=== PATIENT | female | born 1980 | race Caucasian/White ===

== ENCOUNTER 2016-08-29 16:43 | Emergency (ER) | payer OTHER ==
[~2016-08-29] VITALS: Ht 165.1 cm; Wt 93.9 kg
[~2016-08-29 16:43] MED LIST: AMOXICILLIN500 MG PO; LAC PO
[2016-08-29 18:38] LABS: CALCIUM 8.9 mg/dL (8.5-10.1); CARBON DIOXIDE 28.4 mmol/L (21-32); CHLORIDE SERUM 104 mmol/L (98-107); CREATININE SERUM 0.9 mg/dL (0.6-1.0); GFR1 > 60 mL/min; GLUCOSE SERUM 90 mg/dL (74-106); POTASSIUM SERUM 4.2 mmol/L (3.5-5.1); SODIUM SERUM 139 mmol/L (136-145)
[2016-08-29 18:39] LABS: BASOPHIL % 0.6 % (0-2); PLATELET COUNT 343 x10^3mcL (130-400); RED CELL DISTRIBUTION WIDTH 13.5 % (11.5-14.5)
[2016-08-29 18:45] LABS: ALBUMIN 3.5 g/dL (3.4-5.0); ALKALINE PHOSPHATASE 86 U/L (46-116); ALT/SGPT 22 U/L (14-59); AMYLASE 42 U/L (25-115); AST/SGOT 4 U/L (15-37); BILIRUBIN TOTAL 0.2 mg/dL (0.20-1.00); LIPASE 179 IU/L (73-393); TOTAL PROTEIN, SERUM 7.5 g/dL (6.4-8.2)
[2016-08-29 19:16] VITALS: BP 148/74
== END 2016-08-29 19:16 | disposition home or self-care (01) ==
LOC: ED 16:43
PROVIDERS: Emergency Medicine
DX: R10.12 Left upper quadrant pain (principal); G43.909 Migraine, unspecified, not intractable, without status migrainosus
CPT/HCPCS: 83880; J1885

== ENCOUNTER 2017-03-09 10:43 | Emergency (ER) | payer SELFPAY ==
[~2017-03-09] VITALS: Ht 165.1 cm; Wt 95.2 kg
[2017-03-09 10:47] VITALS: BP 137/96
== END 2017-03-09 12:54 | disposition home or self-care (01) ==
LOC: ED 10:43
DX: G43.909 Migraine, unspecified, not intractable, without status migrainosus (principal)
CPT/HCPCS: J1885; J2930

== ENCOUNTER 2017-03-23 08:35 | Emergency (ER) | payer OTHER ==
[2017-03-23 10:48] VITALS: BP 110/66
== END 2017-03-23 10:48 | disposition home or self-care (01) ==
LOC: ED 08:35
DX: G43.909 Migraine, unspecified, not intractable, without status migrainosus (principal); Z98.51 Tubal ligation status; Z90.89 Acquired absence of other organs
CPT/HCPCS: J1885; J2765

== ENCOUNTER 2018-03-06 09:23 | Emergency (ER) | payer OTHER ==
[~2018-03-06] VITALS: Ht 165.1 cm; Wt 102.1 kg
[2018-03-06 09:32] VITALS: Ht 165.1 cm; Wt 102.1 kg
[2018-03-06 11:39] LABS: BASOPHIL % 0.6 % (0-2); PLATELET COUNT 364 x10^3mcL (130-400); RED CELL DISTRIBUTION WIDTH 13.8 % (11.5-14.5)
[2018-03-06 11:57] LABS: ALBUMIN 3.5 g/dL (3.4-5.0); ALKALINE PHOSPHATASE 87 U/L (46-116); ALT/SGPT 32 U/L (14-59); AST/SGOT 6 U/L (15-37); BILIRUBIN TOTAL 0.31 mg/dL (0.20-1.00); CARBON DIOXIDE 29.4 mmol/L (21-32); CHLORIDE SERUM 108 mmol/L (98-107); CREATININE SERUM 0.8 mg/dL (0.6-1.0); GFR1 > 60 mL/min; GLUCOSE SERUM 76 mg/dL (74-106); LIPASE 135 IU/L (73-393); POTASSIUM SERUM 3.8 mmol/L (3.5-5.1); SODIUM SERUM 145 mmol/L (136-145); TOTAL PROTEIN, SERUM 7.7 g/dL (6.4-8.2)
[2018-03-06 12:01] LABS: UA SPECIFIC GRAVITY 1.015 (1.005-1.035); microscopic required? YES; urine erythrocyte 2+ (NEGATIVE)
[2018-03-06 12:20] LABS: CALCIUM 8.5 mg/dL (8.5-10.1)
[2018-03-06 14:35] VITALS: BP 111/73
== END 2018-03-06 14:35 | disposition home or self-care (01) ==
LOC: ED 09:23
PROVIDERS: Emergency Medicine
DX: K57.90 Diverticulosis of intestine, part unspecified, without perforation or abscess without bleeding (principal); Z90.89 Acquired absence of other organs; Z98.51 Tubal ligation status
CPT/HCPCS: J1885; J2405

== ENCOUNTER 2018-03-11 09:03 | Emergency (ER) | payer OTHER ==
[~2018-03-11] VITALS: Ht 165.1 cm; Wt 103.0 kg
[2018-03-11 09:11] VITALS: BP 124/75; Ht 165.1 cm; Wt 103.0 kg
== END 2018-03-11 10:06 | disposition home or self-care (01) ==
LOC: ED 09:03
DX: M54.5 Low back pain (principal); K57.90 Diverticulosis of intestine, part unspecified, without perforation or abscess without bleeding; G43.909 Migraine, unspecified, not intractable, without status migrainosus; Z90.89 Acquired absence of other organs; Z98.51 Tubal ligation status; Z78.0 Asymptomatic menopausal state

== ENCOUNTER 2020-04-24 20:43 | Emergency (ER) | payer OTHER ==
[~2020-04-24] VITALS: Ht 167.6 cm; Wt 93.9 kg
[2020-04-24 20:50] VITALS: Ht 167.6 cm; Wt 93.9 kg
[2020-04-24 21:23] LABS: BASOPHIL % 0.7 % (0-2); PLATELET COUNT 344 x10^3mcL (130-400); RED CELL DISTRIBUTION WIDTH 14.4 % (11.5-14.5)
[2020-04-24 21:37] LABS: CALCIUM 8.3 mg/dL (8.5-10.1); CARBON DIOXIDE 30.2 mmol/L (21-32); CHLORIDE SERUM 105 mmol/L (98-107); CREATININE SERUM 0.9 mg/dL (0.6-1.0); GFR1 > 60 mL/min; GLUCOSE SERUM 106 mg/dL (74-106); SODIUM SERUM 140 mmol/L (136-145)
[2020-04-24 21:42] LABS: ALBUMIN 3.6 g/dL (3.4-5.0); ALKALINE PHOSPHATASE 86 U/L (46-116); ALT/SGPT 32 U/L (14-59); AST/SGOT 12 U/L (15-37); BILIRUBIN TOTAL 0.4 mg/dL (0.20-1.00); LIPASE 129 IU/L (73-393); TOTAL PROTEIN, SERUM 7.2 g/dL (6.4-8.2)
[2020-04-24 22:32] LABS: UA SPECIFIC GRAVITY 1.025 (1.005-1.035); microscopic required? YES; urine erythrocyte 1+ (NEGATIVE)
[2020-04-25 00:20] VITALS: BP 112/75
== END 2020-04-25 00:20 | disposition home or self-care (01) ==
LOC: ED 20:43
PROVIDERS: Emergency Medicine
DX: K57.32 Diverticulitis of large intestine without perforation or abscess without bleeding (principal); R10.32 Left lower quadrant pain; G43.909 Migraine, unspecified, not intractable, without status migrainosus; Z90.89 Acquired absence of other organs; Z98.51 Tubal ligation status
CPT/HCPCS: J1885; J2405; J3490; J7030